=== PATIENT | male | born 1985 | race Caucasian/White ===

== ENCOUNTER 2018-11-14 18:44 | Emergency (ER) | payer OTHER ==
--- NOTE | 2018-11-14 19:09 | EDPHY ---
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 He is able to bear weight albeit with pain. No break in skin. Normal coloration distally. No proximal distal pain or injury. No foot ankle and femur injury. PHYSICAL EXAM (Prior to examination, patient consented to physical exam, hands were washed and my usual and customary physical exam procedures followed) 1) GENERAL: Well-developed, well-nourished, alert and oriented. Appears to be in no acute distress. 2) HEAD: Normocephalic 3) HEENT: Pupils equal, round, reactive to light bilaterally. 4) LUNGS: Breathing comfortably. 5) MUSCULOSKELETAL: Right lower extremity: Ecchymosis in tender to palpation distal 3rd of the tibia and fibula with no deformity no angulation, intact skin. proximal tibia and fibula nontender .5th MT nontender negative Chandra test, compartments soft 6) SKIN: Intact 7) VASCULAR: DP,PT pulses and cap refill present and brisk DIFFERENTIAL DIAGNOSIS: in no particular order including but not limited to fracture, sprain, compartment syndrome Procedure: Crutches indications for crutch use discussed with patient. Patient fitted for crutches by ER staff. Observed ambulating with crutches. I think the patient has the capacity to safely use crutches. Usual and customary crutch walking precautions provided Procedure: Splint A griffin boot splint was applied by ER noc technician. After application of the splint I returned and re-examined the patient. The splint was adequately immobilizing the joint and distal to the splint the patient's circulation and sensation were intact. Patient shows no signs of compartment syndrome. Was given orthopedic precautions. Smoking Status: Never smoked Constitutional: Initial Vital Signs Temperature (C) 36.6 C 11/14/18 18:49 Heart Rate 98 11/14/18 18:49 Respiratory Rate 19 11/14/18 18:49 Blood Pressure 124/72 H 11/14/18 18:49 O2 Sat (%) 94 12/24/18 18:49 O2 Delivery Mode Room Air Allergies/Adverse Reactions: No Known Allergies Allergy (Unverified 11/14/18 18:49) MDM/Departure - MDM Imaging Results: Imaging Impressions Tibia/Fibula X-Ray 11/14/18 19:07 Impression: No acute osseous abnormality. Images reviewed myself ED Course/Re-evaluation: Re-evaluation with serial exams was recently at 7:25 p.m.. I Reviewed the patient's x-ray showing no definitive fracture or dislocation. Re-evaluated the patient. He has soft compartments, no evidence compartment syndrome. Pain not out of proportion to injury. He has been informed that he is at risk of compartment syndrome and the importance of close observation and my usual and customary orthopedic precautions instructions have been provided. I believe him to have decision-making capacity. Was also given [place] boot, crutches. He feels comfortable being discharged. All questions and concerns addressed by myself. Care of patient under supervision of secondary supervising physician Dr Jewell Park. - Depart Disposition: Home, Routine, Self-Care Clinical Impression: Crush injury lower leg Qualifiers: Encounter type: initial encounter Laterality: right Qualified Code(s): S87.81XA - Crushing injury of right lower leg, initial encounter Condition: Good Instructions: Crush Injury (ED) Additional Instructions: Return to the ER immediately if you experience discoloration, have worsening pain, numbness, tingling, or any other symptoms that concern you. If you received x-rays in the emergency department today, be advised, that ligamentous , tendon, muscular, and other non-bony injury cannot be fully ruled out. Try to keep your affected extremity elevated above the level of your chest, and keep cold packs on the affected area, for the next 48 hours. Referrals: Lance Shea MD [Medical Doctor] - 1-2 days without fail
[2018-11-14 19:42] VITALS: BP 140/79
== END 2018-11-14 19:43 | disposition home or self-care (01) ==
DX: S87.81XA Crushing injury of right lower leg, initial encounter (principal); W23.1XXA Caught, crushed, jammed, or pinched between stationary objects, initial encounter; Y92.89 Other specified places as the place of occurrence of the external cause; Y93.9 Activity, unspecified; Y99.0 Civilian activity done for income or pay
CPT/HCPCS: L4386